=== PATIENT | female | born 1980 | race Caucasian/White ===

== ENCOUNTER 2022-06-15 12:36 | Emergency (ER) | payer OTHER, SELFPAY | END 2022-06-15 13:37 | disposition left against medical advice (07) | DX: Z53.21 Procedure and treatment not carried out due to patient leaving prior to being seen by health care provider (principal) | CPT/HCPCS: 99199 ==

== ENCOUNTER 2022-12-20 08:14 | Emergency (ER) | payer OTHER, SELFPAY ==
[2022-12-20 08:29] VITALS: BP 136/97; PULSE 76; RESP 18; TEMP 36.6; O2SAT 97; BMI 32.3
--- NOTE | 2022-12-20 08:47 | ED.GENADULT ---
HPI - General Adult General Time Seen by Provider: 08:47 Date Seen: 12/20/22 Chief complaint: Extremity Pain/Injury, Upper Stated complaint: Right arm pain Time Seen by Provider: 12/20/22 08:46 Source: patient and RN notes reviewed Mode of arrival: ambulatory Limitations: no limitations History of Present Illness HPI narrative: Donavon is a 42-year-old female coming in with nausea and vomiting, now with left interscapular shoulder pain. She states she was nauseated all day yesterday. Denies any abdominal pain. This morning has started vomiting, was drinking water when I came in the room. She has had prior C-sections but no other abdominal surgery. She has an IUD for contraception. She this morning started noting left shoulder pain, feels more in the interscapular area on the left side but feels pain going down into the left arm, states arm feels somewhat numb and tingly. She has had pinched nerve in her neck before and thought it was that but with the nausea vomiting, became concerned for other possible issues including her heart. Denies any difficulty breathing or shortness of breath. No chest pain per se. Related Data Home Medications Medication Instructions Recorded Confirmed bupropion HCl 300 mg 24 hr tablet, 300 mg PO DAILY 12/20/22 12/20/22 extended release fluoxetine 20 mg capsule 20 mg PO QAM 12/20/22 12/20/22 pramipexole 0.125 mg tablet mg PO 12/20/22 Previous Rx's Medication Instructions Recorded cyclobenzaprine 10 mg tablet 10 mg PO TID PRN muscle spasm #30 12/20/22 tabs ondansetron HCl 4 mg tablet 4 mg PO Q8H PRN nausea and 12/20/22 vomiting #20 tabs Allergies Allergy/AdvReac Type Severity Reaction Status Date / Time Sulfa (Sulfonamide Allergy Unknown Verified 12/20/22 08:32 Antibiotics) Review of Systems Status of ROS: Reports: 6 or more systems reviewed and unremarkable except as noted in History and below [facility] Social History Smoking Status: Never smoker How often do you have a drink containing alcohol: 2-4 times a month AUDIT-C Alcohol total score: 2 Non-prescribed substance use: denies use Exam Const: Vital Signs, click to edit/add: Vital Signs - 24 hr 12/20/22 08:29 12/20/22 09:30 Temperature 97.8 F Pulse Rate [Pulse Oximeter] 76 Respiratory Rate 18 Blood Pressure [Ri ght Upper Arm] 136/97 H Pulse Oximetry 97 97 Oxygen Delivery Me thod Room Air Documenting provider has reviewed patient's vital signs: yes Common normals: no apparent distress, oriented x3, no limitations, alert and well nourished General appearance: cooperative, comfortable, well kempt and well developed Nutritional appearance: overweight Other: Face seems a bit pale to me but overall she is in no apparent distress. Looks like she does not feel well. HENMT: Common normals: normocephalic, head/scalp atraumatic, hearing grossly normal bilaterally, external ears normal and external nose normal Head and scalp: normocephalic and atraumatic Face and sinus: normal facial exam Nose: external nose normal External ear: external ears normal Eye: Common normals: PERRL, EOMs intact bilaterally, conjunctivae normal and no scleral icterus Conjunctiva: conjunctiva(e) normal Pupil: PERRL Neck & C-Spine: Common normals: full ROM, no lymphadenopathy, supple, no meningeal signs, no JVD and thyroid normal Thyroid: thyroid normal Chest: Common normals: inspection of chest normal and palpation of chest normal Resp: Common normals: normal respiratory effort, no retractions, no use of accessory muscles and clear to auscultation bilaterally Effort & inspection: able to speak in complete sentences Auscultation: clear to auscultation bilaterally Cardio: Common normals: no JVD, regular rate, regular rhythm, S1 normal heart sound, S2 normal heart sound, no gallops, no clicks and no murmurs Rate: regular rate Rhythm: regular rhythm Heart sounds: S1 normal and S2 normal GI: Common normals: Normal to inspection, nondistended, normoactive bowel sounds present, soft to palpation, non-tender (But states her nausea increases when I palpate in the right upper quadrant), no hepatosplenomegaly and no masses Palpation: soft and no hepatosplenomegaly Rectal Exam - Female: deferred Back & Pelvis: Common normals: thoracic and lumbar spine normal to inspection and no thoracic nor lumbar tenderness Extremity: Common normals: no calf tenderness and no pedal edema Other: Normal light touch sensation in extremities, strength/motor is normal. Cannot reproduce the interscapular back pain. I cannot reproduce the pain with range of motion of her shoulder or testing of the rotator cuff. Her left upper extremity exam is normal other than she feels pain in the interscapular area. Neuro: Common normals: oriented x3, moves all extremities, no focal motor deficits and no sensory deficits noted Sensorium/orientation: alert Meningeal signs: no meningeal signs Psych: Appearance: well kempt Course Course Hospital Course: We will have her on pulse oximetry, obtain EKG. Differential is broad here in could be cardiovascular, atypical respiratory presentation, consideration for thromboembolic disease. Gallbladder issues with referred pain to the left shoulder certainly come to mind and would also incorporate gastrointestinal etiologies with referred pain to left shoulder in the differential. We will be getting full complement of labs, start with two view chest x-ray. Will initiate some IV fluids due to her nausea vomiting, give 4 mg IV Zofran and 15 mg IV Toradol for attempt at pain relief. Reevaluation(s) Time of Reevaluation #1: 11:09 Reevaluation #1: Have reviewed with Donavon that chest x-ray and ultrasound of her gallbladder are both normal. Labs are not indicative of any significant abnormality. She does recollect 1 episode of diarrhea yesterday and feels like there may be something brewing currently. Did review with her that this is possibly a viral gastroenteritis. She is starting to develop a little headache since being here, had not been there prior. We did review that the shoulder pain could be musculoskeletal or possibly cervical radiculopathy. We did discuss completing a 2nd point of care troponin just to ensure no changes, doing COVID testing. I do wonder if this is underlying viral illness. At this time if troponin comes back normal, will discharge to home. We can let her know COVID testing result via phone. Vital Signs Vital signs: Initial Vital Signs Temperature 97.8 F 12/20/22 08:29 Temperature Source Temporal Artery Scan 12/20/22 08:29 Pulse Rate 76 12/20/22 08:29 Respiratory Rate 18 12/20/22 08:29 Blood Pressure 136/97 H 12/20/22 08:29 Blood Pressure Mean 110 H 12/20/22 08:29 Blood Pressure Position Sitting 12/20/22 08:29 Pulse Oximetry 97 12/20/22 08:29 Oxygen Delivery Method Room Air 12/20/22 08:29 Vital Signs Temperature 97.8 F 12/20/22 08:29 Pulse Rate 76 12/20/22 08:29 Respiratory Rate 18 12/20/22 08:29 Blood Pressure 136/97 H 12/20/22 08:29 Pulse Oximetry 97 12/20/22 08:29 Oxygen Delivery Method Room Air 12/20/22 08:29 Temperature 97.8 F 12/20/22 08:29 Pulse Rate 64 12/20/22 11:28 Respiratory Rate 18 12/20/22 11:28 Blood Pressure 143/103 H 12/20/22 11:28 Pulse Oximetry 99 12/20/22 11:28 Oxygen Delivery Method Room Air 12/20/22 11:28 Medical Decision Making Lab Data Lab results reviewed: Yes I reviewed the patient's lab results Labs: Lab Results 12/20/22 12/20/22 12/20/22 Range/Units 08:57 09:20 11:10 WBC 10.46 (4.50-11.00) K/uL RBC 4.34 (4.00-5.20) m/uL Hgb 11.8 L (12.0-16.0) gm/dL Hct 36.4 (33.0-51.0) % MCV 84 (80-100) fL MCH 27 (26-34) pg MCHC 32 (32-36) gm/dL RDW Coeff of Maciel 12.8 (11.5-15.5) % Plt Count 443 H (140-440) K/uL Neut % (Auto) 76.4 H (42.0-72.0) % Lymph % (Auto) 15.2 L (20-44) % Rock % (Auto) 6.6 (0.0-11.0) % Eos % (Auto) 1.1 (0.0-7.0) % Baso % (Auto) 0.4 (0.0-3.0) % Neut # (Auto) 8.00 H (1.7-7.0) K/uL Lymph # (Auto) 1.60 (0.90-2.90) K/uL Rock # (Auto) 0.70 (0.00-0.90) K/UL Eos # (Auto) 0.12 (0.00-0.50) K/uL Baso # (Auto) 0.04 (0.00-0.30) K/uL D-Dimer Quant (PE/DVT) 0.38 (0.00-0.50) ug/ml Sodium 136 (135-149) mmol/L Potassium 3.3 L (3.6-5.1) mmol/L Chloride 102 (96-114) mmol/L Carbon Dioxide 25 (20-32) mmol/L BUN 8 (5-24) mg/dL Creatinine 0.6 (0.5-1.5) mg/dL Estimated Creat Clear 118.78 Estimated GFR 115 ml/min Glucose 98 (60-115) mg/dL Lactate 1.0 (0.5-1.9) mmol/L Calcium 8.8 (8.4-10.6) mg/dL Total Bilirubin 0.3 (0.1-1.5) mg/dL Direct Bilirubin 0.0 (0.0-0.5) mg/dL AST 23 (12-35) U/L ALT 19 (4-35) U/L Alkaline Phosphatase 64 (40-150) U/L C-Reactive Protein 1.2 H (0.5-1.0) mg/dL NT-Pro-B Natriuret Pep 142 pg/mL Total Protein 7.7 (6.0-8.3) g/dL Albumin 4.4 (3.3-5.0) g/dL Lipase 73 (23-300) U/L Urine Color Yellow (Yellow) Urine Appearance Slightly Cloudy A (Clear) Urine pH 8.0 (5.0-8.5) Ur Specific [place] 1.020 (1.000-1.030) Urine Protein 1+ A (Negative) Urine Glucose (UA) Negative (Negative) Urine Ketones Negative (Negative) Urine Blood Negative (Negative) Urine Nitrite Negative (Negative) Urine Bilirubin Negative (Negative) Urine Urobilinogen 0.2 (0.2-1.0) Ur Leukocyte Esterase Negative (Negative) Urine RBC 0-2 (0-2) Urine WBC 0-2 (0-5) Ur Squamous Epith Cells Moderate A (None-Few) Urine Bacteria Moderate A (None) Urine Mucus Moderate A (None) Urine Yeast Few A (None) SARS-CoV-2 (PCR) Negative SARS-CoV-2 (Negative) POC Troponin I 0.00 L (0.01-0.04) ng/ml 12/20/22 Range/Units 11:30 WBC (4.50-11.00) K/uL RBC (4.00-5.20) m/uL Hgb (12.0-16.0) gm/dL Hct (33.0-51.0) % MCV (80-100) fL MCH (26-34) pg MCHC (32-36) gm/dL RDW Coeff of Maciel (11.5-15.5) % Plt Count (140-440) K/uL Neut % (Auto) (42.0-72.0) % Lymph % (Auto) (20-44) % Rock % (Auto) (0.0-11.0) % Eos % (Auto) (0.0-7.0) % Baso % (Auto) (0.0-3.0) % Neut # (Auto) (1.7-7.0) K/uL Lymph # (Auto) (0.90-2.90) K/uL Rock # (Auto) (0.00-0.90) K/UL Eos # (Auto) (0.00-0.50) K/uL Baso # (Auto) (0.00-0.30) K/uL D-Dimer Quant (PE/DVT) (0.00-0.50) ug/ml Sodium (135-149) mmol/L Potassium (3.6-5.1) mmol/L Chloride (96-114) mmol/L Carbon Dioxide (20-32) mmol/L BUN (5-24) mg/dL Creatinine (0.5-1.5) mg/dL Estimated Creat Clear Estimated GFR ml/min Glucose (60-115) mg/dL Lactate (0.5-1.9) mmol/L Calcium (8.4-10.6) mg/dL Total Bilirubin (0.1-1.5) mg/dL Direct Bilirubin (0.0-0.5) mg/dL AST (12-35) U/L ALT (4-35) U/L Alkaline Phosphatase (40-150) U/L C-Reactive Protein (0.5-1.0) mg/dL NT-Pro-B Natriuret Pep pg/mL Total Protein (6.0-8.3) g/dL Albumin (3.3-5.0) g/dL Lipase (23-300) U/L Urine Color (Yellow) Urine Appearance (Clear) Urine pH (5.0-8.5) Ur Specific [place] (1.000-1.030) Urine Protein (Negative) Urine Glucose (UA) (Negative) Urine Ketones (Negative) Urine Blood (Negative) Urine Nitrite (Negative) Urine Bilirubin (Negative) Urine Urobilinogen (0.2-1.0) Ur Leukocyte Esterase (Negative) Urine RBC (0-2) Urine WBC (0-5) Ur Squamous Epith Cells (None-Few) Urine Bacteria (None) Urine Mucus (None) Urine Yeast (None) SARS-CoV-2 (PCR) (Negative) POC Troponin I 0.00 L (0.01-0.04) ng/ml Imaging Data Chest x-ray: Attestation: I have reviewed the pertinent imaging results. My impression: No acute pathology on my preliminary review of her two view chest x-ray, wait radiology over-read. Radiologist's impression: Patient: DONAVON VICENTE Facility:?[facility] Patient ID:?[id number] Site Patient ID:?[id number]. Site :?[id number] Study:?XRay Chest 2 VIEWS-12/20/2022 9:20:53 AM Ordering Physician:Juan Kenny Final Report: INDICATION: Left back and shoulder pain COMPARISON: None TECHNIQUE: PA and lateral views of the chest were acquired FINDINGS: TUBES AND LINES: None. HEART AND MEDIASTINUM: The heart size is normal. The mediastinal contour appears normal for patient age. LUNGS AND PLEURAL SPACES: The lungs appear normal.The pleural spaces are unremarkable. OSSEOUS STRUCTURES: Age-appropriate appearance. No acute focal finding. IMPRESSION: No evidence of active pulmonary disease. Dictated by Anthony Sparks MD @ 12/20/2022 9:29:12 AM (Electronic Signature) ECG Data Attestation: I personally reviewed and interpreted this ECG as follows: (Normal sinus rhythm, 64 beats per minute. QT corrected 435 milliseconds. No ischemic or concerning change on this EKG.) Prior ECG tracings: not available for review Critical Care Time Critical Care Time Critical Care Time: No Discharge Plan Discharge Clinical Impression: Interscapular pain, Nausea and vomiting Patient Disposition: Home, Self-Care Condition: Stable Instructions: Gastroenteritis (ED), Acute Nausea and Vomiting (ED), Back Pain (ED) Additional Instructions: Use Zofran as needed to help control nausea. It is possible that this is an early gastroenteritis, if you are having more diarrhea, that certainly makes gastroenteritis more likely. Frequent small sips of clear liquids to stay hydrated, solid foods as your appetite and symptoms dictate. If you are not improving in the next couple of days, have worsening symptoms or further concerns, please seek re-evaluation. Will send a muscle relaxant in for this left interscapular back pain. It is possible that this could be nerve impingement, monitor symptoms. If this is continuing, course of prednisone could be considered but would await until your stomach symptoms have improved. If you have ongoing left interscapular back pain, really do recommend that you get scheduled for follow-up evaluation in your clinic. Certainly can use Tylenol and ibuprofen as needed for pain management, follow bottle directions for dosing. Activity Level: Activity as Tolerated Prescriptions: New cyclobenzaprine 10 mg tablet 10 mg PO TID PRN (Reason: muscle spasm) Qty: 30 0RF ondansetron HCl 4 mg tablet 4 mg PO Q8H PRN (Reason: nausea and vomiting) Qty: 20 0RF No Action fluoxetine 20 mg capsule 20 mg PO QAM bupropion HCl 300 mg tablet extended release 24 hr 300 mg PO DAILY pramipexole 0.125 mg tablet PO Follow Up/Referrals: Provider,Not a Local [Referring] - Stand Alone Forms: [employer] Info Instructions
--- NOTE | 2022-12-20 08:55 | CRLHL7_ITS ---
For Patients: As a result of the Century Cures Act, medical imaging exams and procedure reports are released immediately into your electronic medical record. You may view this report before your referring provider. If you have questions, please contact your health care provider. INDICATION: Left back and shoulder pain COMPARISON: None TECHNIQUE: PA and lateral views of the chest were acquired FINDINGS: TUBES AND LINES: None. HEART AND MEDIASTINUM: The heart size is normal. The mediastinal contour appears normal for patient age. LUNGS AND PLEURAL SPACES: The lungs appear normal.The pleural spaces are unremarkable. OSSEOUS STRUCTURES: Age-appropriate appearance. No acute focal finding. IMPRESSION: No evidence of active pulmonary disease. Dictated by Anthony Sparks MD @ 12/20/2022 9:29:12 AM (Electronically Signed)
--- NOTE | 2022-12-20 08:55 | CRLHL7_ITS ---
For Patients: As a result of the Century Cures Act, medical imaging exams and procedure reports are released immediately into your electronic medical record. You may view this report before your referring provider. If you have questions, please contact your health care provider. INDICATION: Nausea, left back pain TECHNIQUE: Ultrasound abdomen limited. Sonographic images of the right upper quadrant were obtained using miranda-scale and color Doppler images. COMPARISON: None FINDINGS: Liver: Mildly inhomogeneous in echotexture without discrete lesion. Gallbladder: No stones or sludge. Normal wall thickness. No pericholecystic fluid. Common bile duct: 3 mm. Pancreas: Partially obscured by bowel gas without discrete lesion. Right kidney: Normal in size. Normal echotexture and cortex. No masses, stones, or hydronephrosis. Vasculature: Proximal abdominal aorta and IVC are normal. IMPRESSION: 1. No evidence of cholelithiasis or cholecystitis. 2. Mildly inhomogeneous echotexture of the liver, possibly mild fatty infiltration. Dictated by Isrrael Saucedo MD @ 12/20/2022 10:24:12 AM (Electronically Signed)
[2022-12-20] MEDS: 0.9 % SODIUM CHLORIDE 1000 ml 1,000 ML 500 ML IV (09:21)
[2022-12-20] MEDS: ONDANSETRON 2 MG/ML inj 4 MG IVP (09:21)
[2022-12-20] MEDS: KETOROLAC 15 MG/ML inj IVP (09:21)
[2022-12-20 09:30] VITALS: O2SAT 97
[2022-12-20 09:35] LABS: Basophils Absolute Auto 0.04 K/uL (0.00-0.30); Basophils Percent Auto 0.4 % (0.0-3.0); Eosinophils Absolute Auto 0.12 K/uL (0.00-0.50); Eosinophils Percent Auto 1.1 % (0.0-7.0); Hematocrit 36.4 % (33.0-51.0); Hemoglobin* 11.8 gm/dL (12.0-16.0); Immature Granulocytes Abs Auto 0.03 K/uL (0.00-0.30); Immature Granulocytes Pct Auto 0.3 %; Lymphocytes Percent Auto 15.2 % (20-44); Mean Corpuscular HGB Conc 32 gm/dL (32-36); Mean Corpuscular Hemoglobin 27 pg (26-34); Mean Corpuscular Volume 84 fL (80-100); Monocytes Percent Auto 6.6 % (0.0-11.0); Neutrophils Percent Auto 76.4 % (42.0-72.0); Platelet Count* 443 K/uL (140-440); RDW Coefficient of Variation % 12.8 % (11.5-15.5); Red Blood Count 4.34 m/uL (4.00-5.20); White Blood Count* 10.46 K/uL (4.50-11.00)
[2022-12-20 09:38] LABS: Slide Review Reflex No
[2022-12-20 09:58] LABS: Albumin* 4.4 g/dL (3.3-5.0); D Dimer Quantitative* 0.38 ug/ml (0.00-0.50)
[2022-12-20 09:59] LABS: Chloride* 102 mmol/L (96-114); Sodium* 136 mmol/L (135-149)
[2022-12-20 10:00] LABS: Potassium* 3.3 mmol/L (3.6-5.1)
[2022-12-20 10:01] LABS: Creatinine* 0.6 mg/dL (0.5-1.5); Est. Creatinine Clearance* 118.78; Estimated Glomerular Filt Rate 115 ml/min
[2022-12-20 10:02] LABS: Alanine Aminotransferase* 19 U/L (4-35); Alkaline Phosphatase* 64 U/L (40-150); Aspartate Amino Transferase* 23 U/L (12-35); Bilirubin Total* 0.3 mg/dL (0.1-1.5); Blood Urea Nitrogen* 8 mg/dL (5-24); Carbon Dioxide* 25 mmol/L (20-32); Glucose* 98 mg/dL (60-115); Lipase* 73 U/L (23-300); Total Protein* 7.7 g/dL (6.0-8.3)
[2022-12-20 10:03] LABS: Calcium* 8.8 mg/dL (8.4-10.6)
[2022-12-20 10:05] LABS: C Reactive Protein* 1.2 mg/dL (0.5-1.0)
[2022-12-20 10:10] LABS: NT Pro B Type NatriureticPept* 142 pg/mL
[2022-12-20 10:27] LABS: Bilirubin Urine Negative (Negative); Blood Urine Negative (Negative); Color Urine Yellow (Yellow); Glucose Urine Negative (Negative); Ketones Urine Negative (Negative); Leukocyte Esterase Urine Negative (Negative); Nitrite Urine Negative (Negative); Protein Urine 1+ (Negative); Urobilinogen Urine 0.2 (0.2-1.0)
[2022-12-20 10:31] LABS: Appearance Urine Slightly Cloudy (Clear); Bacteria Urine Moderate; RBC Urine 0-2 (0-2); Squamous Epithelial Cell Urine Moderate (None-Few); WBC Urine 0-2 (0-5)
[2022-12-20 10:32] LABS: Mucus Urine Moderate
--- NOTE | 2022-12-20 11:14 | ED.NURSE ---
pt [employer] swabbed
[2022-12-20 11:28] VITALS: BP 143/103; PULSE 64; RESP 18; O2SAT 99
[2022-12-20 12:20] LABS: SARS PCR* Negative SARS-CoV-2 (Negative)
== END 2022-12-20 12:07 | disposition home or self-care (01) ==
PROVIDERS: Emergency Provider Family Medicine; PCP Family Medicine
DX: M25.512 Pain in left shoulder (principal); R11.2 Nausea with vomiting, unspecified
CPT/HCPCS: 36415; 71046; 76705; 80053; 81001; 82248; 83605; 83690; 83880; 84484; 85025; 85379; 86140; 87086; 87635; 93005; 94761; 96374; 96375; 99284; 99285; J1885; J2405; J7030

== ENCOUNTER 2023-04-18 17:00 | Outpatient (RCR) | payer OTHER, SELFPAY | END 2023-08-16 23:59 | disposition home or self-care (01) | PROVIDERS: PCP Family Medicine; Visit Provider Orthopaedic Surgery Hand Surgery | DX: S62.609A Fracture of unspecified phalanx of unspecified finger, initial encounter for closed fracture (principal); Z51.89 Encounter for other specified aftercare | CPT/HCPCS: 97035; 97110; 97140; 97165; X5282 ==